=== PATIENT | male | born 1970 | race Caucasian/White ===

== ENCOUNTER 2023-02-19 11:00 | Outpatient (RCR) | payer OTHER, SELFPAY ==
--- NOTE | 2023-02-18 12:30 | HP.PTEVAL ---
Patient's Visit Information Visit Information Visit Information: KENZIE VALENZUELA is a 52 year old M referred to Physical Therapy by SUGAR Aleman with a diagnosis of LUMBAR STRAIN AND RADICULOPATHY. Date of Evaluation: 02/18/23 Physical Therapist: Patti Avalos, PT, Cert MDT Visit Plan Frequency: 2-3x /Week Duration: 4-6 Weeks Plan: POSTURE CORRECTION/STRENGTHENING, INSTRUCTION IN APPROPRIATE BODY MECHANICS AND ACTIVITY MODIFICATIONS. DLS STARTING WITH A NEUTRAL SPINE PROGRESSING ROM TOLERATED. NISSA LE ROM, STRETCHING AND STRENGTHENING. HEP INSTRUCTION. Subjective Subjective: Work/Leisure: OFF WORK SINCE LAST WEDNESDAY FOR BACK PAIN. TENTATIVE RTW DATE IS February. EMPLOYEED [employer] AT [employer]. LIFTING UP TO APPROX 20 LBS. REPETATIVE. STANDING ALL DAY. SOME BENDING AND TWISTING INVOLVED. Present symptoms: LEFT LOW BACK PAIN. RECENTLY HAD NISSA HIP PAIN BUT THAT IS GONE. DENIES ANY OTHER LEG SX'S WITH THIS EPISODE. Present since: LAST Wednesday02/12/23 Pain Scale: WORST 8/10, LEAST 1/10 Currently: 1/10 Is it getting better, worse or staying the same: GETTING BETTER Commenced as a result of: NO APPARENT REASON. Symptoms at onset: LEFT LOW BACK SORENESS. Worse: RISING FROM SITTING, BENDING OVER, PROLONGED SITTING OR STANDING, WALKING Better: NOTHING EXCEPT MAYBE LEANING TO THE RIGHT OR FORWARD. Disturbed sleep: NO Previous history/Previous treatment: EPISODIC LBP SELF TREATED. Treatment this episode: PRESCRIPTION IBUPROFEN, MUSCLE RELAXER - SEEM TO BE HELPING. Coughing/sneezing/straining: POSITIVE Gait: SORE WHEN TAKING STEP. HAS TO WALK SLOWER Bowel or Bladder Dysfunction: NO Accidents: NO Unexplained weight loss: NO Imaging: RECENT LUMBAR X-RAY - PATIENT STATES NOTHING IS OUT OF PLACE AND LOOKS GOOD BUT SOME AGE RELATED SLIGHT CURVING OF THE BONES. SEE [facility] [place] [facility] EMR REPORT - REVIEWED BY THIS PT. PMH/Recent major surgery: UNREMARKABLE Objective Objective: Sitting/Standing Posture: POOR. FH. RSH'S. NORMAL LUMBAR LORDOSIS AND NO RELEVANT LATERAL SHIFT. Active Correction of posture: NE Other Observations: SLOW ANTALGIC GAIT INTO PT WITHOUT ANY AD'S OR LOB. Sensory deficit: NISSA LE LIGHT TOUCH SENSATION GROSSLY INTACT AND SYMMETRICAL. ROM deficit: TIGHT NISSA LE HS'S AND GASTROC SOLEUS COMPLEX'S. Motor deficit: NISSA LE'S GROSSLY 5/5 WITH MMT'ING EXCEPT L HIP 4/5 Reflexes: 2/3 NISSA LE'S. Dural Signs: POSITIVE LLE Lumbar mvmt loss: flex - NIL ext - MIN R SG - NIL L SG - MOD C/O LEFT LB PRESSURE AND LIMITATION BENDING TO THE LEFT. C/O L LBP RETURNING TO UPRIGHT FROM FORWARD FLEXION. NO WORSE A RESULT OF TESTING. Core strength: POOR Palpation: NO ACUTE LUMBOSACRAL TENDERNESS WITH PALPATION. TREATMENT: NEUROMUSCULAR REEDUCATION - RETRAINING OF MVMT AND POSTURE FOR SITTING, LYING AND STANDING ACTIVITIES. Balance/Special Test Scores Oswestry Low Back Score: 18 Goals Goal 1:: DECREASE C/O LOW BACK PAIN Goal Time Frame: 4-6 Weeks Goal 2:: IMPROVE PERSONAL CARE, LIFTING, WALKING, SITTING, STANDING, SLEEP, SOCIAL LIFE, TRAVEL AND WORK FUNCTION. Goal Time Frame: 4-6 Weeks Goal 3:: INSTRUCT IN PROHYLAXIS Goal Time Frame: 4-6 Weeks Anticipated Interventions Patient/Client Instruction: Educate patient on: Condition, Plan of Care and Risk Factors For the Purpose of:: To improve self management Therapeutic Exercise to Include: Strength training, Body mechanics, Postural training, Flexibilty training, Neuromotor development, In an aquatic setting and Dynamic Lumbar Stabilization For the Purpose of:: To decrease pain, To improve muscle performance and motor function, To increase tolerance to activity/condition/position and To improve ability of physical actions for home/community/work/leisure Text: Thank you for the opportunity to evaluate your patient. For Medicare and Medicare HMO plans, please review the plan of care and approve it. It will need to be FAXED BACK to us at [phone] for Medicare purposes. For Medicare only, by signing this I certify the plan of care. Please let me know if there are questions or concerns regarding this plan of care. Physician Signature: Date:
--- NOTE | 2023-06-22 10:55 | HP.PT.NRP ---
Patient Information Patient Information: KENZIE VALENZUELA was seen in my office for initial evaluation on 02/18/23. The following Plan of Care was established for this patient: POC Established Initial Frequency: 2-3x /Week Initial Duration: 4-6 Weeks Anticipated Interventions Patient/Client Instruction: Educate patient on: Condition, Plan of Care and Risk Factors For the Purpose of:: To improve self management Therapeutic Exercise to Include: Strength training, Body mechanics, Postural training, Flexibilty training, Neuromotor development, In an aquatic setting and Dynamic Lumbar Stabilization For the Purpose of:: To decrease pain, To improve muscle performance and motor function, To increase tolerance to activity/condition/position and To improve ability of physical actions for home/community/work/leisure Last Seen Last Seen: This patient was last seen in our office 02/19/23. Pertinent comments regarding their Physical therapy will appear below: This patient has not returned to Physical Therapy and is appropriate to return to MD for further follow-up as needed. At this point I will be discontinuing this patient from physical therapy. I would be happy to see this patient again in the future if found appropriate by the physician. Thank you! Patti Avalos, PT, Cert MDT Balance/Gait/Functional tests Balance/Special Test Scores Oswestry Low Back Score: 18
== END 2023-02-19 19:00 | disposition home or self-care (01) ==
LOC: PT 11:00
PROVIDERS: Referring Provider Physician Assistant; Visit Provider Physician Assistant
DX: S39.012D Strain of muscle, fascia and tendon of lower back, subsequent encounter (principal); M54.16 Radiculopathy, lumbar region
CPT/HCPCS: 97110; 97112; 97161; 97162

== ENCOUNTER → 2023-02-22 | Outpatient (CLI) | payer OTHER, SELFPAY ==
--- NOTE | 2023-02-22 09:47 | HP.PTEVAL ---
Patient's Visit Information Visit Information Visit Information: KENZIE VALENZUELA is a 52 year old M referred to Physical Therapy by Rin Delacruz MD with a diagnosis of . Date of Evaluation: Physical Therapist: Patti Avalos PT, Cert MDT Anticipated Interventions Text: Thank you for the opportunity to evaluate your patient. For Medicare and Medicare HMO plans, please review the plan of care and approve it. It will need to be FAXED BACK to us at [phone] for Medicare purposes. For Medicare only, by signing this I certify the plan of care. Please let me know if there are questions or concerns regarding this plan of care. Physician Signature: Date:
[2023-02-22 10:01] LABS: Absolute Lymphocyte Count 2.05 X10^3/uL (0.83-4.51); Absolute Neutrophil Count 7.5 X10^3/uL (2.0-7.7); Basophil# 0.05 X10^3/uL; Basophil% 0.5 % (0-1); Eosinophil# 0.16 X10^3/uL; Eosinophils% 1.5 % (0-5); Hematocrit 45.4 % (40-54); Hemoglobin 15.4 g/dL (13.0-16.5); Lymphocyte # 2.05 X10^3/ul (0.83-4.51); Lymphocyte % 19.8 % (19-41); Mean Corp Hgb Conc 33.9 g/dL (32-36); Mean Corpuscular Hgb 30.9 pg (27.0-32.0); Mean Corpuscular Volume 91.2 fL (80-94); Mean Platelet Vol. 10.2 fl (6.2-12.0); Monocyte# 0.58 X10^3/uL; Monocyte% 5.6 % (0-10); NRBC Flagged by Analyzer 0 % (0-5); Neutrophil # 7.49 X10^3/uL (2.7-7.7); Neutrophil % 72.2 % (47-70); Platelet Count 260 K/mm3 (150-450); RBC Distribution Width CV 12.7 % (11.6-14.6); RBC Distribution Width SD 42.2 fl (35.1-43.9); Red Blood Count 4.98 M/mm3 (4.6-6.2); White Blood Count 10.4 K/mm3 (4.4-11.0)
--- NOTE | 2023-02-22 10:43 | HP.PTEVAL ---
Patient's Visit Information Visit Information Visit Information: KENZIE VALENZUELA is a 52 year old M referred to Physical Therapy by Rin Delacruz MD with a diagnosis of . Date of Evaluation: Physical Therapist: Patti Avalos PT, Cert MDT Anticipated Interventions Text: Thank you for the opportunity to evaluate your patient. For Medicare and Medicare HMO plans, please review the plan of care and approve it. It will need to be FAXED BACK to us at [phone] for Medicare purposes. For Medicare only, by signing this I certify the plan of care. Please let me know if there are questions or concerns regarding this plan of care. Physician Signature: Date:
[2023-02-22 10:51] LABS: ALB/GLOB Ratio 0.8 RATIO (0.9-2.4); AST(SGOT) 22 U/L (15-37); Alanine Aminotransfer ALT/SGPT 49 U/L (16-61); Albumin, Serum 3.3 g/dL (3.2-5.0); Alkaline Phosphatase 67 U/L (45-117); Anion Gap 3 (5-15); BUN 8 mg/dL (7-18); BUN/Creat Ratio 10.9 RATIO (10-20); Calcium,Total 9.1 mg/dL (8.5-10.1); Chloride 107 mmol/L (98-107); Cholesterol 247 mg/dL (200); Creatinine, Serum 0.74 mg/dL (0.70-1.30); EST Glomerular Filtration Rate 119 mL/min (>60); Est Glom Filt Rate - Afr Amer 144 mL/min (>60); Globulin 3.9 g/dL (2.2-4.2); Glucose 99 mg/dL (74-106); High Density Lipoprotein 26 mg/dL; Potassium 3.9 mmol/L (3.5-5.1); Protein, Total 7.2 g/dL (6.4-8.2); Sodium Level 136 mmol/L (136-145); Triglycerides 255 mg/dL; Very Low Density Lipoprotein 51 mg/dL (5-40)
== END | disposition home or self-care (01) ==
LOC: MFPLAB 08:49
PROVIDERS: PCP Family Medicine; Visit Provider Family Medicine
DX: Z00.00 Encounter for general adult medical examination without abnormal findings (principal); Z13.220 Encounter for screening for lipoid disorders
CPT/HCPCS: 36415; 80053; 80061; 85025